=== PATIENT | female | born 1970 | race Caucasian/White ===

== ENCOUNTER 2018-07-02 11:03 | Emergency (ER) | payer MEDICAID, OTHER | END 2018-07-02 11:40 | disposition home or self-care (01) | LOC: FTE 11:03 | DX: J30.9 Allergic rhinitis, unspecified (principal); R40.2412 Glasgow coma scale score 13-15, at arrival to emergency department | CPT/HCPCS: 99283; Z7502 ==

== ENCOUNTER 2018-12-12 11:33 | Emergency (ER) | payer MEDICAID | END 2018-12-12 19:52 | disposition home or self-care (01) | LOC: E/R 11:33 | DX: R05 Cough (principal); I10 Essential (primary) hypertension | CPT/HCPCS: 71045; 99283-25 ==

== ENCOUNTER 2019-04-05 07:45 | Emergency (ER) | payer MEDICAID | END 2019-04-05 08:41 | disposition home or self-care (01) | LOC: FTE 07:45 | DX: K04.7 Periapical abscess without sinus (principal); I10 Essential (primary) hypertension | CPT/HCPCS: 99283 ==